=== PATIENT | male | born 1965 | race Caucasian/White ===

== ENCOUNTER → 2017-12-13 | Outpatient (CLI) | payer OTHER ==
[~2017-12-13] MED LIST: CHOL200021 PO; CPAP; IBUP200C74 PO; KET10 PO; OMEP-125 PO; PER PO
[2017-12-13 08:53] LABS: PLATELET COUNT, AUTOMATED 227 K/uL (150-450)
[2017-12-13 09:24] LABS: LDL CHOLESTEROL 144 mg/dl
== END ==
LOC: LAB 08:35
PROVIDERS: ATTEND Internal Medicine
DX: Z00.00 Encounter for general adult medical examination without abnormal findings (principal)
CPT/HCPCS: 36415; 82040; 82247; 82310; 82374; 82435; 82465; 82565; 82947; 83718; 84075; 84132; 84153; 84155; 84295; 84450; 84460; 84478; 84520; 85025

== ENCOUNTER → 2018-02-07 | Outpatient (CLI) | payer OTHER ==
[~2018-02-07] MED LIST changes: +MELO-207 PO
[2018-02-07 08:20] LABS: PLATELET COUNT, AUTOMATED 234 K/uL (150-450)
--- NOTE | 2018-02-07 08:35 | EKG ---
FACILITY: [facility] [place] PATIENT NAME: LETTY GOMEZ : [id number] MR: [id number]: [id number] EXAM DATE: ORDERING PHYSICIAN: ANA HAN TECHNOLOGIST: JENNIFER Test Reason : PREOP-KNEE Blood Pressure : / mmHG Vent. Rate : 059 BPM Atrial Rate : 059 BPM P-R Int : 166 ms QRS Dur : 094 ms QT Int : 416 ms P-R-T Axes : 062 060 047 degrees QTc Int : 411 ms Sinus bradycardia No acute appearing findings No previous ECGs available Confirmed by JORGE A CAR ([id number]) on 02/07/2018 12:22:48 PM Referred By: EMELY Confirmed By:JORGE A CAR
== END ==
LOC: LAB 08:01
PROVIDERS: ATTEND Anesthesiology
DX: S83.241A Other tear of medial meniscus, current injury, right knee, initial encounter (principal)
CPT/HCPCS: 36415; 85025; 93005